=== PATIENT | female | born 1960 | race Caucasian/White ===

== ENCOUNTER 2019-04-20 04:47 | Inpatient (IN) ==
--- NOTE | 2019-03-15 14:56 | Anesthesiology Consultation ---
Date of Service March 15, 2019 Assessment & Plan (1) Encounter for pre-operative examination: - No prior anesthesia/intubation records. Chart Review Chart Review: Acceptable Risk for Surgery and Patient seen in Pre Admission Testing Consults Requested medical (Dr. Lagunas (03/30)) Patient was seen on 03/30 by PCP for preoperative evaluation. Per note from that visit, "Labs reviewed, medically cleared". Teaching & Discussion Pre-Anesthesia Teaching/Discussion Notes: Instructed NPO after midnight before surgery, except medications with 15 cc of water. Medication instructions provided according to the PAT guidelines. History Surgery Operation Date: 04/21/19 07:00 Proposed Procedures p Bilateral Total Knee Arthroplasty - Smith Gray DO Height/Weight Height: 5 ft 1 in Weight: 60.8 kg Allergies Allergy/AdvReac Type Severity Reaction Status Date / Time sulfamethoxazole Allergy Unknown Rash Verified 03/10/19 09:50 [From Bactrim] trimethoprim [From Bactrim] Allergy Unknown Rash Verified 03/10/19 09:50 clindamycin AdvReac Unknown NAUSEA AND Verified 03/10/19 09:50 VOMITING Medications Home Medications Medication Instructions Recorded Confirmed Last Taken Joint Med-Otc 1 tab PO QPM 03/10/19 03/10/19 Unknown aspirin 81 mg PO QPM 03/10/19 03/10/19 Unknown calcium carb-D3-mag ox-zinc ox 1 tab PO QPM 03/10/19 03/10/19 Unknown cholecalciferol (vitamin D3) 5,000 unit PO QPM 03/10/19 03/10/19 Unknown [Vitamin D3] cyanocobalamin (vitamin B-12) 1,500 mcg PO QPM 03/10/19 03/10/19 Unknown meloxicam 15 mg PO QPM 03/10/19 03/10/19 Unknown potassium 99 mg PO QPM 03/10/19 03/10/19 Unknown risedronate [Actonel] 150 mg PO MONTHLY 03/10/19 03/10/19 Unknown simvastatin 80 mg PO HS 03/10/19 03/10/19 Unknown turmeric root extract 500 mg PO QPM 03/10/19 03/10/19 Unknown vitamin A-vitamin C-vit E-min 1 tab PO QPM 03/10/19 03/10/19 Unknown [Vision] Past Medical History Medical History Cardiac murmur RF A CHILD Hyperlipidemia Migraine HX Osteoarthritis Osteoporosis Exercise / Class Metabolic Activity II 4-5 Yardwork/Stairs/Walk up hill (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 Able to climb FOS sideways. Denies CP or SOB. ) Past Family History Family History Grandfather (Paternal) Family history of diabetes mellitus Grandfather (Maternal) Family history of diabetes mellitus Family/Other Family history of diabetes mellitus Past Surgical History Surgical History History of section History of cholecystectomy History of colonoscopy History of hysterectomy 1 OVARY History of hysteroscopy History of laparoscopy History of tonsillectomy Past Anesthesia History No Hx of Anesthesia Complications and No Family Hx of Anesthesia Complications History of PONV No Hx of PONV and No Hx of Motion Sickness Social History Smoking Status: Never smoker Do You Dip or Chew Tobacco: No Hx Alcohol Use: No Hx Substance Use: No substance use type: does not use Review of Systems Patient denies chest pain, shortness of breath, dyspnea on exertion, cough, wheezing, palpitations. +Joint Pain (Knees, Hips, Neck) +Acid Reflux (Rare, occasional use of TUMS) Physical Exam Vital Signs BP: 127/76 P: 73 R: 16 T: 98.4 SPO2: 98% on RA ENMT Thyromental Distance: > or= 3.5 Finger Breadths (3.5) Mallampati Class: II Neck normal visual inspection and trachea midline; neck extension not limited Respiratory normal respiratory effort Auscultation: lungs clear to auscultation bilaterally Cardiovascular Rate/Rhythm: regular rate and regular rhythm Heart Sounds: no murmur Vessels: no carotid bruit Neurologic moves all extremities Psychiatric Orientation: alert and oriented x 3 Testing Laboratory Results 03/15/19 15:25 03/15/19 15:25 03/15/19 03/15/19 03/15/19 15:25 15:25 15:25 PT 10.4 INR 1.0 APTT 24.5 Hemoglobin A1c 5.5 Urine Color Urine Appearance Urine pH Ur Specific [place] Urine Protein Urine Glucose (UA) Urine Ketones Urine Nitrite Ur Leukocyte Esterase Blood Type A Negative Antibody Screen NEGATIVE 03/15/19 15:25 PT INR APTT Hemoglobin A1c Urine Color Yellow Urine Appearance Clear Urine pH >= 9.0 H Ur Specific [place] 1.017 Urine Protein Negative Urine Glucose (UA) Negative Urine Ketones Negative Urine Nitrite Negative Ur Leukocyte Esterase Negative Blood Type Antibody Screen Electrocardiogram Date: 03/15/19 Findings: + SB @ (57) Chest X-Ray Date: 03/15/19 Findings: + NAD
--- NOTE | 2019-03-15 14:56 | PAT Medication Instructions ---
Medication Instructions Date of Service March 15, 2019 Home Medications Joint Med-Otc 1 tab PO QPM aspirin 81 mg PO QPM calcium carb-D3-mag ox-zinc ox 1 tab PO QPM cholecalciferol (vitamin D3) [Vitamin D3] 5,000 unit PO QPM cyanocobalamin (vitamin B-12) 1,500 mcg PO QPM meloxicam 15 mg PO QPM potassium 99 mg PO QPM risedronate [Actonel] 150 mg PO MONTHLY simvastatin 80 mg PO HS turmeric root extract 500 mg PO QPM vitamin A-vitamin C-vit E-min [Vision] 1 tab PO QPM Continue as directed risedronate [Actonel] 150 mg PO MONTHLY ASK your surgeon for instructions aspirin 81 mg PO QPM meloxicam 15 mg PO QPM STOP taking 2 weeks before surgery Joint Med-Otc 1 tab PO QPM turmeric root extract 500 mg PO QPM vitamin A-vitamin C-vit E-min [Vision] 1 tab PO QPM Take morning of surgery NOTHING TO EAT OR DRINK AFTER MIDNIGHT Take evening before surgery calcium carb-D3-mag ox-zinc ox 1 tab PO QPM cholecalciferol (vitamin D3) [Vitamin D3] 5,000 unit PO QPM cyanocobalamin (vitamin B-12) 1,500 mcg PO QPM potassium 99 mg PO QPM simvastatin 80 mg PO HS Other Notes If you have any questions please call us at [phone] or [phone] or [phone] or [phone]
--- NOTE | 2019-03-15 16:12 | XRay Report ---
XR chest Pre-admission PA/Lat HISTORY: Preop. COMPARISON: None. FINDINGS: The lungs are clear. Cardiac silhouette is normal in size. No pleural effusions. No pneumot horax. Cholecystectomy. IMPRESSION: No acute process. Electronically signed by: Hi Boyd M.D. 03/15/2019 4:11 PM
[2019-03-15 16:20] LABS: Basophils # (auto) 0.03 K/uL (0-0.2); Basophils % (auto) 0.4 %; Eosinophils # (auto) 0.07 K/uL (0-0.5); Hematocrit (blood only) 42.5 % (37-47); Hemoglobin 14.8 g/dL (12.0-16.0); Lymphocytes # (auto) 2.42 K/uL (1.2-3.4); Lymphocytes % (auto) 34.6 %; Mean Corpuscular Hgb Conc 34.8 g/dL (32-36); Mean Corpuscular Volume 84.8 fL (80-100); Mean Platelet Volume 10.9 fL (7.4-10.4); Monocytes # (auto) 0.46 K/uL (0.11-0.59); Monocytes % (auto) 6.6 %; Neutrophils # (auto) 4.02 K/uL (1.4-6.5); Neutrophils % (auto) 57.4 %; Platelet Count 254 K/uL (130-400); RDW Coefficient of Variation 12.9 % (11.5-14.5); RDW Standard Deviation 39.9 fL (36.4-46.3); Red Blood Count 5.01 M/uL (4.2-5.4)
[2019-03-15 16:28] LABS: Albumin Level 4.1 gm/dl (3.4-5.0); Appearance Urine Clear (Clear); Bilirubin Urine Negative (Negative); Blood Urine Negative (Negative); Calcium 9.9 mg/dl (8.5-10.1); Color Urine Yellow; Creatinine Clr Calc Pharmacy 73.5 ml/min; Est GFR (African American) 110.4; Est GFR (Non-African American) 95.3; Glucose Urine UA Negative (Negative); Ketones Urine Negative (Negative); Leukocyte Esterase Urine Negative (Negative); Nitrite Urine Negative (Negative); Potassium 4.3 mmol/L (3.5-5.1); Protein Urine Negative (Negative); Specific Gravity Urine 1.017 (1.000-1.030); Urobilinogen Urine Negative (Negative); pH Urine >= 9.0 (4.5-7.5)
[2019-03-15 16:44] LABS: Partial Thromboplastin Ratio 0.9; Partial Thromboplastin Time 24.5 Seconds (21.0-31.0); Prothrombin Time 10.4 Seconds (9.0-12.0)
[2019-03-16 06:42] LABS: Estimated Average Glucose 111 mg/dl; Hemoglobin A1C 5.5 % (4.5-5.6)
--- NOTE | 2019-03-22 07:54 | History & Physical Report ---
Date of Service March 22, 2019 Date of Surgery: 04/21/19 Assessment & Plan (1) Bilateral primary osteoarthritis of knee: Risks and benefits of procedure discussed in detail today, patient would like to proceed with Bilateral total knee replacements at [facility] as scheduled. will obtain medical clearance prior to surgery as well as obtain PATs at [facility]. Will place on Xarelto x 1 month post op, f/u 2 weeks post op for routine post-operative care and x-ray, sooner if having any problems. will make arrangements for HHPT at the time of discharge. At this point in time, has failed conservative measures and would like to proceed with surgical intervention. she has no personal cardiac history but significant family history of early CAD and follows with Dr Hodge. History of Present Illness Chief Complaint: bilateral knee pain Primary Care Provider: Tate Lagunas Ms Dunham is a 58 year old female who is here for a follow up of bilateral knee pain, left worse than right, presents for pre-op eval prior to bilateral total knee replacements at [facility] by dr landa. She presents with pain, crepitus, stiffness and instability in both of her knees. She states that the symptoms have been chronic non-traumatic. The symptoms occur constantly with intermittent worsening and is unchanged. Currently the patient states that the symptoms are moderate-severe. The pain is described as aching, sharp and sometimes stabbing. The symptoms occur continuously. She rates her current pain as 4/10 and worst is 7/10. The symptoms are aggravated by daily activities, first steps while awake, repetitive activities and walking. In addition to knee pain equally on both sides the patient is also experiencing joint pain and limping. Patient has a cane and walker at home. Prior pain medications include Tylenol, voltaren gel and IBU. Patient had visco and cortisone injections in the past with minimal relief. Allergies Allergy/AdvReac Type Severity Reaction Status Date / Time sulfamethoxazole Allergy Unknown Rash Verified 03/10/19 09:50 [From Bactrim] trimethoprim [From Bactrim] Allergy Unknown Rash Verified 03/10/19 09:50 clindamycin AdvReac Unknown NAUSEA AND Verified 03/10/19 09:50 VOMITING Home Medications Home Medications Medication Instructions Recorded Confirmed Type Joint Med-Otc 1 tab PO QPM 03/10/19 03/10/19 History aspirin 81 mg PO QPM 03/10/19 03/10/19 History calcium carb-D3-mag ox-zinc ox 1 tab PO QPM 03/10/19 03/10/19 History cholecalciferol (vitamin D3) 5,000 unit PO QPM 03/10/19 03/10/19 History [Vitamin D3] cyanocobalamin (vitamin B-12) 1,500 mcg PO QPM 03/10/19 03/10/19 History meloxicam 15 mg PO QPM 03/10/19 03/10/19 History potassium 99 mg PO QPM 03/10/19 03/10/19 History risedronate [Actonel] 150 mg PO MONTHLY 03/10/19 03/10/19 History simvastatin 80 mg PO HS 03/10/19 03/10/19 History turmeric root extract 500 mg PO QPM 03/10/19 03/10/19 History vitamin A-vitamin C-vit E-min 1 tab PO QPM 03/10/19 03/10/19 History [Vision] Past Med/Surg History Medical History Cardiac murmur RF A CHILD Hyperlipidemia Migraine HX Osteoarthritis Osteoporosis Surgical History History of section History of cholecystectomy History of colonoscopy History of hysterectomy 1 OVARY History of hysteroscopy History of laparoscopy History of tonsillectomy Family History Grandfather (Paternal) Family history of diabetes mellitus Grandfather (Maternal) Family history of diabetes mellitus Family/Other Family history of diabetes mellitus Social History Preferred Language: Nigerian Communication Ability: Effective List Of First Job Ideas Required: No Beliefs That Will Affect Care: None Current Living Situation: Alone Other Information That Helps Us Care for You: No Feels Safe at Home: Yes Safety Concerns: Feels Safe At This Time Smoking Status: Never smoker Do You Dip or Chew Tobacco: No Second Hand Exposure: No (PREVIOUS SPOUSE) Hx Alcohol Use: No Hx Substance Use: No Review of Systems Review of Systems: All systems reviewed & are unremarkable except as noted in HPI & below Constitutional: no fever, no chills and no sweats Respiratory: no cough and no dyspnea Cardiovascular: no chest pain, no dyspnea and no orthopnea Gastrointestinal: no abdominal pain, no nausea and no vomiting Musculoskeletal: as per Subjective / HPI Physical Exam Physical Exam: Ht: 5ft 1 in Wt: 60.8kg BP: 124/78 Pulse: 72 Constitutional: WD/WN, vitals as above no acute distress Respiratory: normal respiratory effort, lungs clear to auscultation no respiratory distress, no labored breathing and does not use accessory muscles Cardiovascular: RRR, no murmur, no edema Gastrointestinal (Abdomen): normal bowel sounds, soft, nontender, no hepatosplenomegaly Musculoskeletal: Bilateral knee Physical exam- Overall patient has varus alignment bilaterally, there is no atrophy or ecchymosis noted to either knee, she does have +2 effusion in both of her knees, she has tenderness to both med ial and lateral joint lines both of her knees. negative patellar apprehension, she does have crepitation noted to both knees with active motion. bilateral knees ligamentously stable, bo negative, posterior drawer negative. Range of motion right knee 0/3/115, left knee 0/3/115. her lower extremities are neurovascularly intact, calf soft and non tender, DP pulse +2 bilaterally. Results & Data Laboratory Results Laboratory Results WBC 7.00 K/uL (4.8-10.8) 03/15/19 15:25 RBC 5.01 M/uL (4.2-5.4) 03/15/19 15:25 Hgb 14.8 g/dL (12.0-16.0) 03/15/19 15:25 Hct 42.5 % (37-47) 03/15/19 15:25 MCV 84.8 fL (80-100) 03/15/19 15:25 MCH 29.5 pg (25-34) 03/15/19 15:25 MCHC 34.8 g/dL (32-36) 03/15/19 15:25 RDW Std Deviation 39.9 fL (36.4-46.3) 03/15/19 15:25 RDW Coeff of Josie 12.9 % (11.5-14.5) 03/15/19 15:25 Plt Count 254 K/uL (130-400) 03/15/19 15:25 MPV 10.9 fL (7.4-10.4) H 03/15/19 15:25 Immature Gran % (Auto) 0.0 % 03/15/19 15:25 Neut % (Auto) 57.4 % 03/15/19 15:25 Lymph % (Auto) 34.6 % 03/15/19 15:25 Sherman % (Auto) 6.6 % 03/15/19 15:25 Eos % (Auto) 1.0 % 03/15/19 15:25 Baso % (Auto) 0.4 % 03/15/19 15:25 Immature Gran # (Auto) 0.00 K/uL (0.00-0.02) 03/15/19 15:25 Neut # (Auto) 4.02 K/uL (1.4-6.5) 03/15/19 15:25 Lymph # (Auto) 2.42 K/uL (1.2-3.4) 03/15/19 15:25 Sherman # (Auto) 0.46 K/uL (0.11-0.59) 03/15/19 15:25 Eos # (Auto) 0.07 K/uL (0-0.5) 03/15/19 15:25 Baso # (Auto) 0.03 K/uL (0-0.2) 03/15/19 15:25 PT 10.4 Seconds (9.0-12.0) 03/15/19 15:25 INR 1.0 (0.9-1.1) 03/15/19 15:25 APTT 24.5 Seconds (21.0-31.0) 03/15/19 15:25 PTT Ratio 0.9 03/15/19 15:25 Sodium 141 mmol/L (136-145) 03/15/19 15:25 Potassium 4.3 mmol/L (3.5-5.1) 03/15/19 15:25 Chloride 107 mmol/L (98-107) 03/15/19 15:25 Carbon Dioxide 27 mmol/L (21-32) 03/15/19 15:25 Anion Gap 7.0 (3-11) 03/15/19 15:25 BUN 15 mg/dl (7-18) 03/15/19 15:25 Creatinine 0.69 mg/dl (0.6-1.2) 03/15/19 15:25 Est Cr Clr Drug Dosing 73.5 ml/min 03/15/19 15:25 Est GFR ( Amer) 110.4 03/15/19 15:25 Est GFR (Non-Af Amer) 95.3 03/15/19 15:25 BUN/Creatinine Ratio 22.0 (10-20) H 03/15/19 15:25 Glucose 84 mg/dl (70-99) 03/15/19 15:25 Estimat Average Glucose 111 mg/dl 03/15/19 15:25 Hemoglobin A1c 5.5 % (4.5-5.6) 03/15/19 15:25 Calcium 9.9 mg/dl (8.5-10.1) 03/15/19 15:25 Albumin 4.1 gm/dl (3.4-5.0) 03/15/19 15:25 Urine Color Yellow 03/15/19 15:25 Urine Appearance Clear (Clear) 03/15/19 15:25 Urine pH >= 9.0 (4.5-7.5) H 03/15/19 15:25 Ur Specific [place] 1.017 (1.000-1.030) 03/15/19 15:25 Urine Protein Negative (Negative) 03/15/19 15:25 Urine Glucose (UA) Negative (Negative) 03/15/19 15:25 Urine Ketones Negative (Negative) 03/15/19 15:25 Urine Blood Negative (Negative) 03/15/19 15:25 Urine Nitrite Negative (Negative) 03/15/19 15:25 Urine Bilirubin Negative (Negative) 03/15/19 15:25 Urine Urobilinogen Negative (Negative) 03/15/19 15:25 Ur Leukocyte Esterase Negative (Negative) 03/15/19 15:25 Blood Type A Negative 03/15/19 15:25 Antibody Screen NEGATIVE 03/15/19 15:25 Diagnostic Findings Bilateral Knee radiographs from 03/08/19 showing degenerative changes to both knees, greatest medial compartments and patellofemoral joints, showing joint space narrowing, osteophyte formation and subchondral sclerosis. no acute bony pathology noted. no loose bodies.
[2019-04-20] MEDS ORDERED: ROPIVACAINE 0.5% HCL/PF 150 MG, BUPIVACAINE 0.5% MPF 30 ML, EPINEPHrine 30MG/30ML (OR U... INFIL SCH (06:00)
[2019-04-20] MEDS ORDERED: LR 500ML BOLUS, THEN 15ML/HR IV SCH (06:00)
[2019-04-20] MEDS ORDERED: CEFAZOLIN 1000MG 1,000 MG/7.5 ML SYR IV SCH (06:00)
[2019-04-20] MEDS ORDERED: dexAMETHasone 4 MG TAB PO SCH (06:00)
[2019-04-20] MEDS ORDERED: ACETAMINOPHEN 500 MG TAB PO SCH (06:00)
[2019-04-20] MEDS ORDERED: GABAPENTIN 600 MG DOSE PO SCH (06:00)
[2019-04-20] MEDS ORDERED: METOCLOPRAMIDE HCL 10 MG TABLET PO SCH (06:00)
[2019-04-20] MEDS ORDERED: TRANEXAMIC ACID 1,000 MG **IV Pre-op IV SCH (06:00)
[2019-04-20] MEDS ORDERED: PROPOFOL IV EMULSION 10 MG/ML 20 ML VIAL IV ONE ×2 (06:22→08:30)
[2019-04-20] MEDS ORDERED: LIDOCAINE HCL 2% 2 ML VIAL/AMP(20MG/ML) INFIL ONE ×2 (06:22→08:30)
[2019-04-20] MEDS ORDERED: MIDAZOLAM HCL 1 MG/ML 2ML VIAL ONE (06:22)
[2019-04-20] MEDS ORDERED: fentaNYL citrate 100 MCG/2 ML VIAL ONE (06:23)
[2019-04-20] MEDS ORDERED: ROPIVACAINE 0.5% 5 MG/ML 30 ML VIAL ONE (06:30)
[2019-04-20] MEDS ORDERED: ONDANSETRON INJ 2 MG/ML 2 ML VIAL ONE (06:30)
[2019-04-20] MEDS ORDERED: BUPIVACAINE 0.5 % 5 MG/1 ML PF 10ML VIAL ONE (06:30)
[2019-04-20] MEDS ORDERED: TRANEXAMIC ACID 1,000 MG **IV Intra-op IV SCH (06:30)
[2019-04-20] MEDS ORDERED: DEXAMETHASONE SOD INJ 4 MG/ML VIAL ONE (06:31)
[2019-04-20] MEDS ORDERED: ORTHO JOINT ANESTHETIC ONE (06:54)
[2019-04-20] MEDS ORDERED: BACITRACIN INJ 50,000 UNIT VIAL ONE (06:54)
--- NOTE | 2019-04-20 07:12 | History & Physical Bridge Note ---
Date of Service April 20, 2019 History & Physical Bridge Note I have examined the patient, reviewed the History & Physical and in the interval since the performance of the History & Physical I have noted the following changes of clinical significance: no changes noted
[2019-04-20] MEDS ORDERED: PHENYLEPHRINE 100MCG/ML 5ML SYR ONE (07:37)
[2019-04-20] MEDS ORDERED: ePHEDrine sulfate 50 MG/ML SYR ONE (07:47)
[2019-04-20] MEDS ORDERED: ePHEDrine sulfate 50 MG/ML AMP IV PRN (07:54)
[2019-04-20] MEDS ORDERED: HYDROmorphone INJ 1 MG/ML SYRINGE IV PRN (07:54)
[2019-04-20] MEDS ORDERED: ONDANSETRON INJ 2 MG/ML 2 ML VIAL IV PRN ×2 (07:54→10:50)
[2019-04-20] MEDS ORDERED: KETOROLAC 30 MG/ML VIAL IV PRN (07:54)
[2019-04-20] MEDS ORDERED: ATROPINE SULFATE 0.1 MG/ML 10ML SYR IV PRN (07:54)
--- NOTE | 2019-04-20 09:06 | Operative Report ---
Post Operative Report Pre & Post Diagnosis Operation Date: 04/20/19 07:15 Pre-Op Diagnosis: Bilateral Knee Osteoarthritis Post-Op Diagnosis: Bilateral Knee Osteoarthritis Procedure Operation Date: 04/20/19 07:15 Actual Procedures p Bilateral Total Knee Arthroplasty(Bilateral) utilizing [employer] journey to non-block total knee arthroplasty right size 2 femur to tibia 9 polyethylene 29 oval patella left size 2 femur to tibia 9 polyethylene 29 oval patella- Smith Gray DO Surgeon Smith Gray DO [employer] Camilo PERAZA Estimated Blood Loss 10 Findings Consistent with Post-Op Diagnosis Patient presents with severe end-stage tricompartmental degenerative joint disease with medial compartment osteophyte subchondral sclerosis marginal osteophytes and subchondral cystic changes eburnated bone moderate to large effusion and varus alignment no response to conservative management Specimens Bone and cartilage Drains Medium bore Hemovac Complications none Disposition Accompanied Patient To Recovery: No Disposition: Recovery Room Indications Patient presents with ongoing complaints of pain bilateral knee pain she is been no response to conservative management and physical therapy anti-inflammatories relative rest activity modification corticosteroid injections Visco supplementation the above intraoperative findings noted times surgery she is failed all attempts at conservative management presents today for bilateral total knee arthroplasty. Description of Procedure After proper prepping and draping of the bilateral lower extremities, an anterior midline incision was made over the region of the extensor extensor mechanism of the left knee. After meticulous hemostasis was obtained and maintained in subcutaneous tissues a medial parapatellar incision was made The patella was subluxed lateralward the medial lateral gutter were cleaned from any hypertrophic synovitis and scar tissue of the distal femoral block was placed and the distal femoral osteotomy cut was made subsequently the chamfers anterior and posterior osteotomy cuts were made utilizing the 4-in-1 block the tibia was subsequently subluxed anteriorward medial and ateral meniscal remnants were excised in their entirety remnants of the anterior and posterior cruciate ligaments were excised in their entirety excellent exposure of the proximal tibia was obtained the tibial osteotomy guide was placed on the proximal tibial osteotomy cut was made once again the knee was irrigated with copious amounts of sterile saline solution the patella was subsequently everted lateralward thickened scar tissue around the patella was removed the patella was subsequently cut utilizing a freehand technique and was drilled prepared for final preparation and placement of patella socially flexion-extension gaps were checked and the equal and symmetric trials were placed to the appropriate femoral and tibial trials with poly-spacer being placed for equal flexion and extension gaps and full range of motion including extension to 0 and flexion to 140 the trial components after having been taken to recovery range of motion was subsequently removed meticulous hemostasis was obtained and maintained subsequently a knee block injection of joint cocktail including ropivacaine 0.5% 150 mg. Bupivacaine 0.5% epinephrine 1-200,030 mL's toradol 30 mg dexamethasone 4 mg ketamine 10 mg clonidine 100 micrograms normal saline solution 30 mg was infiltrated into the soft tissues of the posterior knee medial lateral gutters and periosteal synovium special attention was paid to protect neurovascular structures at all times subsequently trial components having been removed the knee was irrigated with sterile saline solution. debris was removed the proximal tibia was subsequently prepared and was made ready for the placement of the tibial component tibial component was also cemented and tamped into position the femoral component was subsequently placed and cemented in the position the patellar component was subsequently cemented in position because hemostasis once again obtained and maintained wound having been thoroughly irrigated with debr idement and debridement lavage was performed as well as a medial parapatellar incision closed with #1 Vicryl in interrupted fashion subcutaneous was closed with #2 Vicryl skin was closed with skin clips Next, an anterior midline incision was made over the region of the extensor extensor mechanism of the right knee. After meticulous hemostasis was obtained and maintained in subcutaneous tissues a medial parapatellar incision was made The patella was subluxed lateralward the medial lateral gutter were cleaned from any hypertrophic synovitis and scar tissue of the distal femoral block was placed and the distal femoral osteotomy cut was made subsequently the chamfers anterior and posterior osteotomy cuts were made utilizing the 4-in-1 block the tibia was subsequently subluxed anteriorward medial and ateral meniscal remnants were excised in their entirety remnants of the anterior and posterior cruciate ligaments were excised in their entirety excellent exposure of the proximal tibia was obtained the tibial osteotomy guide was placed on the proximal tibial osteotomy cut was made once again the knee was irrigated with copious amounts of sterile saline solution the patella was subsequently everted lateralward thickened scar tissue around the patella was removed the patella was subsequently cut utilizing a freehand technique and was drilled prepared for final preparation and placement of patella socially flexion-extension gaps were checked and the equal and symmetric trials were placed to the appropriate femoral and tibial trials with poly-spacer being placed for equal flexion and extension gaps and full range of motion including extension to 0 and flexion to 140 the trial components after having been taken to recovery range of motion was subsequently removed meticulous hemostasis was obtained and maintained subsequently a knee block injection of joint cocktail including ropivacaine 0.5% 150 mg. Bupivacaine 0.5% epinephrine 1-200,030 mL's toradol 30 mg dexamethasone 4 mg ketamine 10 mg clonidine 100 micrograms normal saline solution 30 mg was infiltrated into the soft tissues of the posterior knee medial lateral gutters and periosteal synovium special attention was paid to protect neurovascular structures at all times subsequently trial components having been removed the knee was irrigated with sterile saline solution. debris was removed the proximal tibia was subsequently prepared and was made ready for the placement of the tibial component tibial component was also cemented and tamped into position the femoral component was subsequently placed and cemented in the position the patellar component was subsequently cemented in position because hemostasis once again obtained and maintained wound having been thoroughly irrigated with debridement and debridement lavage was performed as well as a medial parapatellar incision closed with #1 Vicryl in interrupted fashion subcutaneous was closed with #2 Vicryl skin was closed with skin clips.. PA-C was necessary for prepping and drapping as well as wound closure of deep fascia Sub cutaneous tissue and skin and was necessary for the case. A sterile compressive dressings were placed, patient was taken to recovery in stable condition of report dictated by Isaac I attest to the content of the Intraoperative Record and any orders documented therein. Any exceptions are noted below. I attest to the content of the Intraoperative Record and any orders documented therein. Any exceptions are noted below.
--- NOTE | 2019-04-20 10:26 | XRay Report ---
XR knee RT 2V routine CLINICAL HISTORY: Surgical Post Op COMPARISON: None. DISCUSSION: There are postsurgical changes of a total right knee arthroplasty and patellar resurfacin g. The femoral tibial components appear well seated. There are overlying skin piter and surgical dr mckeon present. IMPRESSION: Postsurgical changes of a total right knee arthroplasty. Electronically signed by: Ayaan Winter M.D. 04/20/2019 10:25 AM
[2019-04-20] MEDS ORDERED: HYDROmorphone INJ 0.5 MG/0.5 ML SYR IV PRN (10:50)
[2019-04-20] MEDS ORDERED: NALOXONE HCL 0.4 MG/1 ML VIAL/CARP IV PRN (10:50)
[2019-04-20] MEDS ORDERED: MAGNESIUM HYDROXIDE SUSP 30 ML UDC PO PRN (10:50)
[2019-04-20] MEDS ORDERED: ALUMINUM/MAGNESIUM SUSP 30 ML UDC PO PRN (10:50)
[2019-04-20] MEDS ORDERED: BISACODYL 10 MG SUPP PR PRN (10:50)
--- NOTE | 2019-04-20 11:00 | Anesthesiology Progress Note ---
Date of Service April 20, 2019 Anesthesia Post Procedure Vital Signs Vital Signs: Temp Pulse Pulse Pulse Resp BP BP 04/20/19 10:51 36.6 C 95 H 17 117/71 04/20/19 10:20 96 H 15 114/70 04/20/19 10:17 36.8 C 04/20/19 10:15 105 H 18 120/77 04/20/19 10:10 103 H 22 120/75 04/20/19 10:05 94 H 14 115/82 04/20/19 10:00 105 H 14 120/77 04/20/19 09:55 102 H 20 123/76 04/20/19 09:50 102 H 15 122/76 04/20/19 09:47 108 H 20 04/20/19 09:46 37.1 C 103 H 113 H 12 122/79 122/79 04/20/19 05:39 36.5 C 76 20 155/90 H Pulse Ox 04/20/19 10:51 96 04/20/19 10:20 92 04/20/19 10:17 99 04/20/19 10:15 99 04/20/19 10:10 99 04/20/19 10:05 97 04/20/19 10:00 99 04/20/19 09:55 99 04/20/19 09:50 100 04/20/19 09:47 100 04/20/19 09:46 100 04/20/19 05:39 99 Pain Intensity Bilateral Knee: Pain Intensity: 0 Transfer of Care Handoff Completed per policy Notes Mental Status: alert / awake / arousable Patient Amnestic to Procedure: Yes Nausea / Vomiting: adequately controlled Pain: adequately controlled Airway Patency, RR, SpO2: stable & adequate BP & HR: stable & adequate Hydration State: stable & adequate Anesthetic Complications: no major complications apparent
[2019-04-20] MEDS: SODIUM CHLORIDE 0.9% 1000ML 1,000 ML IV SCH ×2 (11:12→20:41)
[2019-04-20] MEDS: KETOROLAC TROMETHAMINE 15 MG/ML VIAL IV SCH ×2 (11:13→17:30)
--- NOTE | 2019-04-20 11:24 | XRay Report ---
TWO VIEWS LEFT KNEE CLINICAL HISTORY: Postoperative examination. FINDINGS: AP and crosstable lateral portable views of the left knee are obtained. A left knee arthrop lasty is in near anatomic alignment. There has been undersurface remodeling of the patella. No acute fracture is seen. There are expected postoperative changes around the knee including skin clips, a batista rgical drain, soft tissue edema, and subcutaneous gas. IMPRESSION: Expected postoperative changes status post left knee arthroplasty. No acute fracture is s een. Electronically signed by: Temo Marks M.D. 04/20/2019 11:23 AM
[2019-04-20] MEDS: ACETAMINOPHEN 500 MG TAB PO SCH ×2 (13:42→21:55)
[2019-04-20] MEDS: CEFAZOLIN 1000MG 1,000 MG/7.5 ML SYR IV SCH ×2 (14:16→22:01)
[2019-04-20] MEDS: FERROUS GLUCONATE 324 MG TAB PO SCH (17:27)
[2019-04-20] MEDS: OXYCODONE HCL IR 5 MG TAB (IMMEDIATE RELEASE) PO PRN (20:34)
[2019-04-20] MEDS: DOCUSATE SODIUM 100 MG CAP PO SCH (20:37)
[2019-04-20] MEDS: CYANOCOBALAMIN 500 MCG TABLET (VITAMIN B-12) PO SCH (20:37)
[2019-04-20] MEDS: SIMVASTATIN 40 MG TAB PO SCH (20:37)
[2019-04-20] MEDS: CHOLECALCIFEROL 1,000 UNITS TAB PO SCH (20:38)
[2019-04-20] MEDS: SENNA 8.6 MG TAB PO SCH (20:38)
[2019-04-20] MEDS ORDERED: NON-FORMULARY MEDICATION (Potassium 99 MG) PO SCH (21:00)
[2019-04-21] MEDS: KETOROLAC TROMETHAMINE 15 MG/ML VIAL IV SCH ×4 (00:17→18:36)
[2019-04-21] MEDS: ACETAMINOPHEN 500 MG TAB PO SCH ×3 (05:56→21:07)
[2019-04-21] MEDS ORDERED: ROPIVACAINE 0.5% HCL/PF 150 MG, BUPIVACAINE 0.5% MPF 30 ML, EPINEPHrine 30MG/30ML (OR U... INFIL SCH (06:00)
[2019-04-21] MEDS ORDERED: GABAPENTIN 600 MG DOSE PO SCH (06:00)
[2019-04-21] MEDS ORDERED: CEFAZOLIN 1000MG 1,000 MG/7.5 ML SYR IV SCH (06:00)
[2019-04-21] MEDS ORDERED: ACETAMINOPHEN 500 MG TAB PO SCH (06:00)
[2019-04-21] MEDS ORDERED: METOCLOPRAMIDE HCL 10 MG TABLET PO SCH (06:00)
[2019-04-21] MEDS ORDERED: LR 500ML BOLUS, THEN 15ML/HR IV SCH (06:00)
[2019-04-21] MEDS ORDERED: TRANEXAMIC ACID 1,000 MG **IV Pre-op IV SCH (06:00)
[2019-04-21] MEDS ORDERED: CeleBREX 200 MG CAP PO SCH (06:00)
[2019-04-21] MEDS ORDERED: dexAMETHasone 4 MG TAB PO SCH (06:00)
[2019-04-21] MEDS ORDERED: TRANEXAMIC ACID 1,000 MG **IV Intra-op IV SCH (06:30)
[2019-04-21 06:35] LABS: Hematocrit (blood only) 36.6 % (37-47); Hemoglobin 12.2 g/dL (12.0-16.0); Mean Corpuscular Hgb Conc 33.3 g/dL (32-36); Mean Corpuscular Volume 86.9 fL (80-100); Mean Platelet Volume 11.4 fL (7.4-10.4); Platelet Count 230 K/uL (130-400); RDW Coefficient of Variation 13.4 % (11.5-14.5); RDW Standard Deviation 43.1 fL (36.4-46.3); Red Blood Count 4.21 M/uL (4.2-5.4)
[2019-04-21] MEDS: OXYCODONE HCL IR 5 MG TAB (IMMEDIATE RELEASE) PO PRN ×4 (06:42→22:42)
[2019-04-21 06:54] LABS: BUN Creatinine Ratio 15.7 (10-20); Calcium 8.7 mg/dl (8.5-10.1); Creatinine Clr Calc Pharmacy 76.1 ml/min; Est GFR (African American) 112.6; Est GFR (Non-African American) 97.2; Potassium 4.1 mmol/L (3.5-5.1)
--- NOTE | 2019-04-21 07:31 | Progress Note ---
DATE: 04/21/2019 SUBJECTIVE: The patient is postop day 1 status post bilateral total knee arthroplasty. She is currently awake and alert and oriented and states she started to have a little bit more pain that she had been having during the night. She states that her night had gone fairly well and pain was controlled. She denies shortness of breath, chest pain, lightheadedness. She has no other complaints at this time. OBJECTIVE: EXTREMITIES: Dressings were clean, dry and intact bilaterally. Calves were soft, nontender. Neurovascularly intact. Toes were mobile. Hemovac drains show 50 from the right and 25 from the left from the latest shift. VITAL SIGNS: Vital signs were stable and she is afebrile. Hemoglobin is 12.2 and BMP is pending. ASSESSMENT: Bilateral total knee arthroplasty, postop day #1. PLAN: PT, OT protocols today, weightbearing as tolerated. DVT prophylaxis with rivaroxaban, SCDs and JOSHUA hose, pain management with acetaminophen, oxycodone and hydromorphone and Toradol. Discharge planning: The patient is hoping to go to an inpatient rehab facility for further PT and OT upon discharge.
[2019-04-21] MEDS: FERROUS GLUCONATE 324 MG TAB PO SCH ×2 (08:49→17:41)
[2019-04-21] MEDS: DOCUSATE SODIUM 100 MG CAP PO SCH ×2 (08:49→21:07)
[2019-04-21] MEDS: MULTIVITAMIN TAB PO SCH (08:49)
[2019-04-21] MEDS: RIVAROXABAN 10 MG TABLET PO SCH (08:49)
--- NOTE | 2019-04-21 12:45 | Communication Note ---
Date of Service: April 21, 2019 Pt will be seen by Dr Gray today for rounding.
[2019-04-21] MEDS: SENNA 8.6 MG TAB PO SCH (21:07)
[2019-04-21] MEDS: CYANOCOBALAMIN 500 MCG TABLET (VITAMIN B-12) PO SCH (21:08)
[2019-04-21] MEDS: SIMVASTATIN 40 MG TAB PO SCH (21:08)
[2019-04-21] MEDS: CHOLECALCIFEROL 1,000 UNITS TAB PO SCH (21:08)
[2019-04-22] MEDS: KETOROLAC TROMETHAMINE 15 MG/ML VIAL IV SCH ×2 (00:16→05:47)
[2019-04-22] MEDS: ACETAMINOPHEN 500 MG TAB PO SCH ×2 (05:47→13:48)
[2019-04-22] MEDS: DOCUSATE SODIUM 100 MG CAP PO SCH (07:56)
[2019-04-22] MEDS: FERROUS GLUCONATE 324 MG TAB PO SCH (07:56)
[2019-04-22] MEDS: RIVAROXABAN 10 MG TABLET PO SCH (07:56)
[2019-04-22] MEDS: MULTIVITAMIN TAB PO SCH (07:57)
--- NOTE | 2019-04-22 08:01 | Progress Note ---
DATE: 04/22/2019 SUBJECTIVE: The patient is postop day 2 status post bilateral total knee arthroplasty. Currently, she is sitting up in bed, awake and alert and oriented. She states that she is having some increased lower back pain today which she has had in the past and deals with on a regular basis, history of sciatica and she is doing some stretches which has been helping her. She had a bit of nausea early on, which she states now is dissipating with belching. She states she is passing gas and has had some bowel movements since she has been here. Pain is fairly well controlled at this time and she denies any shortness of breath, chest pain or lightheadedness. OBJECTIVE: Silverlon dressings are clean, dry and intact. Calves were soft, nontender, neurovascularly intact. Toes were mobile. ASSESSMENT: Postoperative day 2 status post bilateral total knee arthroplasty. PLAN: Continue PT, OT protocols, DVT prophylaxis and pain management. Continue antiemetics for nausea. The patient states that the pain patch has been applied to her low back to help with her discomfort. We will wait on case management as far as getting authorization for a skilled facility versus inpatient rehab and as long as the patient continues to progress well, we will plan for discharge in the next day or so if she continues to remain stable. Addendum: Pt approved for rehab. Plan for dc today. ANIKET
[2019-04-22] MEDS: OXYCODONE HCL IR 5 MG TAB (IMMEDIATE RELEASE) PO PRN ×2 (08:02→12:05)
--- NOTE | 2019-04-24 21:57 | Discharge Summary ---
DISCHARGE DIAGNOSIS: Degenerative joint disease, bilateral knees. SECONDARY DIAGNOSES: Cardiac murmur as a child with rheumatic fever, hyperlipidemia, migraine headaches, osteoporosis. CONSULTS: None. COMPLICATIONS: None. PROCEDURES: Bilateral total knee arthroplasty performed by Dr. Gray on 04/20/2019. BRIEF HISTORY: As dictated in the history and physical. HOSPITAL SUMMARY: The patient was admitted on the above-noted date and had the above-noted surgery performed, which she tolerated well. On the first postoperative day, she was currently awake and alert and oriented and was starting to have some more discomfort in the knees that morning. She had a fairly good night and denied shortness of breath, chest pain or lightheadedness. Dressings were clean, dry and intact. Calves were soft, nontender, neurovascularly intact. Toes were mobile. Hemovac drains showed 50 mL from the right drain and 25 mL from the left drain from previous shift. Vital signs were stable. She was afebrile. Hemoglobin was 12.2 and she was started on physical therapy protocol and continued on DVT prophylaxis and pain management. She was hoping for an inpatient rehab stay for discharge. By her second postoperative day, she was currently sitting up in bed, awake and alert. She stated that she was having some increased lower back pain that morning, which she has had in the past and deals with on a regular basis and a history of sciatica. She was doing some stretches in the bed that were helping her. She was a bit nauseous early on, which she states is now dissipating with belching and she was passing gas and did have some bowel movements during her stay. Pain was fairly well controlled at that time and she denied shortness of breath, chest pain or lightheadedness. Silverlon dressings were clean, dry and intact. Calves were soft, nontender, neurovascularly intact. Toes were mobile. Postop she was continued on PT, OT protocols and DVT prophylaxis and pain management, continue on antiemetics for nausea if needed. She had a pain patch that was applied to her low back to help with her discomfort. She was approved for rehab later that afternoon and was thusly discharged to a rehab facility on 04/22/2019. For further review, please see chart. LABORATORY AND X-RAY DATA: As per chart. DISCHARGE INSTRUCTIONS: [place] [facility] [place] DIET: Regular. ACTIVITY: Weightbearing as tolerated on bilateral lower extremities. Follow [facility] instruction sheets and special care instructions as noted and follow up with Dr. Gray in 2 weeks. The patient to call for appointment if one has not been made for you. DISCHARGE MEDICATIONS: Acetaminophen 1000 mg p.o. q. 8 hours, oxycodone 5 mg p.o. q. 6 hours p.r.n., Xarelto 10 mg p.o. daily for 30 days. Resume home meds as listed and stop taking joint medication OTC, meloxicam and turmeric.
== END 2019-04-22 16:12 | disposition alcohol treatment (31) | DRG 462 ==
LOC: ASU 04:47 → 3E 09:50